=== PATIENT | female | born 2005 | race Two or more races ===

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

== ENCOUNTER 2025-02-11 11:19 | Emergency (ER) | payer SELFPAY ==
[~2025-02-11] VITALS: Ht 157.5 cm; Wt 72.0 kg
[~2025-02-11 11:19] MED LIST: HYDR-4808 PO; IBUP-1554 PO
[2025-02-11 11:30] VITALS: TEMP 97.8
[2025-02-11 11:53] VITALS: BP 116/71; PULSE 97; RESP 18; O2SAT 99
== END 2025-02-11 12:32 | disposition home or self-care (01) ==
LOC: EMS 11:21
DX: O26.892 Other specified pregnancy related conditions, second trimester (principal); O99.320 Drug use complicating pregnancy, unspecified trimester; F12.90 Cannabis use, unspecified, uncomplicated; Z02.89 Encounter for other administrative examinations; Z3A.26 26 weeks gestation of pregnancy; Z79.899 Other long term (current) drug therapy
CPT/HCPCS: 99284; Z7502